=== PATIENT | female | born 1965 | race Caucasian/White ===

== ENCOUNTER 2020-06-02 09:32 | Outpatient (CLI) | payer OTHER ==
--- NOTE | 2020-06-02 10:00 | RAD ---
XR Knee Lt 3 View HISTORY: Injury, left knee pain FINDINGS: No fracture or dislocation is identified.
== END 2020-06-02 09:33 | disposition home or self-care (01) ==
LOC: BICRAD 09:32
DX: M25.562 Pain in left knee (principal)